=== PATIENT | male | born 1995 | race African-American/Black ===

== ENCOUNTER 2017-09-15 22:44 | Emergency (ER) | payer OTHER ==
[2017-09-16] MEDS ORDERED: ASPIRIN 81 MG CHEW TABLET PO ONE (00:15)
[2017-09-16 00:48] LABS: BASO % 0.4 % (0.0-1.0); EOS # 0.1 10^3/uL (0.0-0.50); EOS % 1.8 % (0.0-3.0); IMMATURE GRANULOCYTE % 0.7 % (0-0); LYMPH % 40.2 % (24.0-44.0); MEAN CORPUSCULAR HEMOGLOBIN 29.9 pg (27.0-33.0); MEAN CORPUSCULAR HGB CONC 34.8 g/dl (32.0-36.5); MONO # 0.6 10^3/uL (0.0-0.8); MONO % 8.1 % (0.0-5.0); NEUTROPHILS # 3.6 10^3/uL (1.8-7.7); NEUTROPHILS % 48.8 % (36.0-66.0); PLATELET COUNT, AUTOMATED 245 10^3/uL (150-450); RED CELL DISTRIBUTION WIDTH 12.2 % (11.5-14.5); WHITE BLOOD COUNT 7.4 10^3/uL (4.0-10.0)
[2017-09-16 01:07] LABS: ANION GAP 8 MEQ/L (8-16); BLOOD UREA NITROGEN 14 MG/DL (7-18); CALCIUM LEVEL 9.4 MG/DL (8.5-10.1); CARBON DIOXIDE LEVEL 29 MEQ/L (21-32); CHLORIDE LEVEL 103 MEQ/L (98-107); CREATININE FOR GFR 0.92 MG/DL (0.70-1.30); GLUCOSE, FASTING 98 MG/DL (70-105); POTASSIUM SERUM 4.1 MEQ/L (3.5-5.1); SODIUM LEVEL 140 MEQ/L (136-145)
[2017-09-16] MEDS ORDERED: ISOVUE-370 76% 100ML VIAL (Q9967) As Ordered ONE (01:26)
--- NOTE | 2017-09-16 02:30 | REPUSA ---
CLINICAL HISTORY: Dyspnea, elevated . PE. TECHNIQUE: Multiple incremental axial, coronal and oblique images are obtained from the thoracic inle t to the upper abdomen. Intravenous contrast material was administered as per pulmonary embolism prot ocol. COMMENTS: There is excellent opacification of pulmonary arterial system without evidence for pulmonary embolism . Aorta is of normal caliber without evidence for dissection or aneurysm. There is no evidence of pleural or parenchymal mass. There are no pleural effusions. There is no evid ence of hilar or mediastinal lymphadenopathy. The heart and great vessels are within normal limits. Images of the upper abdomen demonstrate no evidence of adrenal mass. The bony structures are free of lytic or blastic lesions. IMPRESSION: No evidence for pulmonary embolism. Thank you for your kind referral of this patient.
[2017-09-16 02:57] VITALS: BP 121/67
--- NOTE | 2017-09-16 08:16 | ECGEPIP ---
Stationary ECG Study [facility] - ED Test Date: 2017-09-15 Pat Name: KYARA COX Department: Room: - Gender: M [employer]: rn : 1995 Requested By: MAKAYLA Hines Order Number: [id number] Reading MD: Patricia Flood Measurements Intervals Strum Rate: 70 P: 17 CT: 133 QRS: 39 QRSD: 89 T: 29 QT: 352 QTc: 380 Interpretive Statements SINUS RHYTHM ST ELEVATION PROBABLE EARLY REPOLARIZATION - CLINICAL CORRELATION NO PRIOR FOR COMPARISON Electronically Signed On 09-16-2017 8:16:16 EST by Patricia Flood
--- NOTE | 2017-09-16 09:20 | REP ---
Clinical: Acute chest pain . Comparison: None . Technique: PA and lateral. Findings: The mediastinum and cardiac silhouette are normal. The lung mccrary are clear and without acute consolidation, effusion, or pneumothorax. The skeletal structures are intact and normal. Impression: 1. No acute cardiopulmonary process. Signed by Hans Eagle MD 09/16/2017 09:12 A
== END 2017-09-16 03:01 | disposition home or self-care (01) ==
LOC: M ED 22:44
DX: R07.89 Other chest pain (principal); Z77.098 Contact with and (suspected) exposure to other hazardous, chiefly nonmedicinal, chemicals; Z82.49 Family history of ischemic heart disease and other diseases of the circulatory system
CPT/HCPCS: 71020; 71275; 80048; 82550; 82553; 85025; 85379; 86140; 93005; 99284; Q9967

== ENCOUNTER 2017-12-23 21:31 | Emergency (ER) | payer OTHER | END 2017-12-24 00:47 | disposition home or self-care (01) | LOC: M ED 21:31 | DX: J32.1 Chronic frontal sinusitis (principal); Z82.5 Family history of asthma and other chronic lower respiratory diseases | CPT/HCPCS: 71046 ==

== ENCOUNTER 2018-02-10 14:04 | Inpatient (IN) | payer OTHER ==
[2018-02-10 16:55] LABS: HEMATOCRIT 43.7 % (42.0-52.0); MEAN CORPUSCULAR HEMOGLOBIN 29.9 pg (27.0-33.0); MEAN CORPUSCULAR HGB CONC 34.3 g/dl (32.0-36.5); MEAN CORPUSCULAR VOLUME 87.2 fl (80.0-96.0); PLATELET COUNT, AUTOMATED 199 10^3/uL (150-450); RED BLOOD COUNT 5.01 10^6/uL (4.30-6.10); RED CELL DISTRIBUTION WIDTH 12.7 % (11.5-14.5); WHITE BLOOD COUNT 6.6 10^3/uL (4.0-10.0)
[2018-02-10 17:13] LABS: AMPHETAMINES LEVEL URINE NEGATIVE (NEGATIVE); BARBITURATES URINE NEGATIVE (NEGATIVE); BENZODIAZEPINES URINE NEGATIVE (NEGATIVE); CANNABINOIDS URINE NEGATIVE (NEGATIVE); COCAINE METABOLITE URINE NEGATIVE (NEGATIVE); METHADONE URINE NEGATIVE (NEGATIVE); OPIATES URINE NEGATIVE (NEGATIVE); PHENCYCLIDINE URINE NEGATIVE (NEGATIVE)
[2018-02-10 17:24] LABS: ACETAMINOPHEN LEVEL < 2.0 UG/ML (10.0-30.0); ALBUMIN 4.1 GM/DL (3.2-5.2); ALBUMIN/GLOBULIN RATIO 1.24 (1.00-1.93); ALKALINE PHOSPHATASE 87 U/L (45-117); ALT/SGPT 37 U/L (12-78); ANION GAP 6 MEQ/L (8-16); AST/SGOT 32 U/L (7-37); BILIRUBIN,DIRECT 0.1 MG/DL (0.0-0.2); BILIRUBIN,TOTAL 0.4 MG/DL (0.2-1.0); BLOOD UREA NITROGEN 13 MG/DL (7-18); CALCIUM LEVEL 8.7 MG/DL (8.5-10.1); CARBON DIOXIDE LEVEL 26 MEQ/L (21-32); CHLORIDE LEVEL 108 MEQ/L (98-107); CREATININE FOR GFR 0.81 MG/DL (0.70-1.30); GLUCOSE, FASTING 85 MG/DL (70-100); POTASSIUM SERUM 4.2 MEQ/L (3.5-5.1); SALICYLATE LEVEL < 1.7 MG/DL (5.0-30.0); SODIUM LEVEL 140 MEQ/L (136-145); TOTAL PROTEIN 7.4 GM/DL (6.4-8.2)
[2018-02-10] MEDS ORDERED: MAALOX 30 ML SUSP *UDC PO (17:30)
[2018-02-10] MEDS ORDERED: MOM 30ML SUSPENSION UDC PO (17:30)
[2018-02-10 17:31] LABS: ETHYL ALCOHOL (ETHANOL) < 0.003 % (0.000-0.010)
[2018-02-11] MEDS ORDERED: ALBUTEROL 90 MCG/ACT 8GM HFA INHALER INH
[2018-02-11] MEDS: SERTRALINE HCL 25 MG TABLET PO (12:40)
[2018-02-11] MEDS: NICOTINE 7 MG/24 HR TRANSDERMAL TD (12:41)
[2018-02-11] MEDS: ACETAMINOPHEN TAB 650MG DOSE (2X325MG) PO (17:48)
[2018-02-11] MEDS: PRAZOSIN 1 MG CAP PO (22:16)
[2018-02-11] MEDS: traZODone 50 MG TAB PO (22:16)
[2018-02-12] MEDS: SERTRALINE HCL 25 MG TABLET PO (08:56)
[2018-02-12] MEDS: NICOTINE 7 MG/24 HR TRANSDERMAL TD (08:56)
[2018-02-12] MEDS: NICOTINE 21MG/24HR 1 EA TRANSDERMAL TD (09:52)
[2018-02-12] MEDS: traZODone 50 MG TAB PO (21:37)
[2018-02-12] MEDS: PRAZOSIN 1 MG CAP PO (21:38)
[2018-02-13] MEDS: NICOTINE 21MG/24HR 1 EA TRANSDERMAL TD (08:14)
[2018-02-13] MEDS: SERTRALINE HCL 25 MG TABLET PO (08:14)
[2018-02-13] MEDS: PRAZOSIN 1 MG CAP PO (21:32)
[2018-02-13] MEDS: traZODone 100 MG TAB PO (21:32)
[2018-02-14] MEDS: SERTRALINE HCL 25 MG TABLET PO (08:56)
[2018-02-14] MEDS: NICOTINE 21MG/24HR 1 EA TRANSDERMAL TD (08:56)
[2018-02-14] MEDS: ACETAMINOPHEN TAB 650MG DOSE (2X325MG) PO (20:46)
[2018-02-14] MEDS: PRAZOSIN 1 MG CAP PO (23:04)
[2018-02-14] MEDS: traZODone 100 MG TAB PO (23:04)
[2018-02-15] MEDS: SERTRALINE HCL 25 MG TABLET PO (08:09)
[2018-02-15] MEDS: NICOTINE 21MG/24HR 1 EA TRANSDERMAL TD (08:09)
[2018-02-15] MEDS: traZODone 100 MG TAB PO (23:02)
[2018-02-15] MEDS: PRAZOSIN 1 MG CAP PO (23:02)
[2018-02-16] MEDS: SERTRALINE HCL 25 MG TABLET PO (08:26)
[2018-02-16] MEDS: NICOTINE 21MG/24HR 1 EA TRANSDERMAL TD (08:26)
== END 2018-02-16 10:30 | disposition home or self-care (01) | DRG 885 ==
LOC: M ED 14:04 → M ED INP 17:20 → M PSY 22:51
DX: F33.0 Major depressive disorder, recurrent, mild (principal); R45.851 Suicidal ideations; F43.10 Post-traumatic stress disorder, unspecified; J45.909 Unspecified asthma, uncomplicated

== ENCOUNTER 2018-03-05 10:47 | Emergency (ER) | payer OTHER ==
[2018-03-05 12:51] LABS: BASO % 0.8 % (0.0-1.0); EOS # 0.1 10^3/uL (0.0-0.50); EOS % 1.6 % (0.0-3.0); HEMATOCRIT 45.6 % (42.0-52.0); HEMOGLOBIN 15.3 g/dl (13.5-17.5); IMMATURE GRANULOCYTE % 0.2 % (0-3.0); LYMPH # 1.8 10^3/uL (1.5-6.5); LYMPH % 35.6 % (24.0-44.0); MEAN CORPUSCULAR HEMOGLOBIN 29.8 pg (27.0-33.0); MEAN CORPUSCULAR HGB CONC 33.6 g/dl (32.0-36.5); MEAN CORPUSCULAR VOLUME 88.7 fl (80.0-96.0); MONO # 0.6 10^3/uL (0.0-0.8); MONO % 12.1 % (0.0-5.0); NEUTROPHILS # 2.5 10^3/uL (1.8-7.7); NEUTROPHILS % 49.7 % (36.0-66.0); PLATELET COUNT, AUTOMATED 159 10^3/uL (150-450); RED BLOOD COUNT 5.14 10^6/uL (4.30-6.10); RED CELL DISTRIBUTION WIDTH 12.3 % (11.5-14.5)
[2018-03-05] MEDS: MORPHINE 4 MG/ML 1ML VIAL/SYRINGE (J2270) IV (12:51)
[2018-03-05] MEDS ORDERED: ISOVUE-370 76% 100ML VIAL (Q9967) As Ordered (13:04)
[2018-03-05 13:22] LABS: LACTIC ACID SEPSIS PROTOCOL 1.1 MMOL/L (0.4-2.0)
[2018-03-05 13:23] LABS: ALBUMIN 3.8 GM/DL (3.2-5.2); ALBUMIN/GLOBULIN RATIO 1.09 (1.00-1.93); ALKALINE PHOSPHATASE 77 U/L (45-117); ALT/SGPT 23 U/L (12-78); ANION GAP 2 MEQ/L (8-16); AST/SGOT 15 U/L (7-37); BILIRUBIN,DIRECT 0.1 MG/DL (0.0-0.2); BILIRUBIN,TOTAL 0.5 MG/DL (0.2-1.0); BLOOD UREA NITROGEN 9 MG/DL (7-18); CARBON DIOXIDE LEVEL 30 MEQ/L (21-32); CHLORIDE LEVEL 108 MEQ/L (98-107); CREATININE FOR GFR 0.88 MG/DL (0.70-1.30); GLUCOSE, FASTING 79 MG/DL (70-100); SODIUM LEVEL 140 MEQ/L (136-145); TOTAL PROTEIN 7.3 GM/DL (6.4-8.2)
== END 2018-03-05 14:32 | disposition home or self-care (01) ==
LOC: M ED 10:47
DX: R60.0 Localized edema (principal); R16.1 Splenomegaly, not elsewhere classified; J45.909 Unspecified asthma, uncomplicated; I10 Essential (primary) hypertension; F90.9 Attention-deficit hyperactivity disorder, unspecified type; F43.10 Post-traumatic stress disorder, unspecified; F41.9 Anxiety disorder, unspecified; F33.9 Major depressive disorder, recurrent, unspecified; K21.9 Gastro-esophageal reflux disease without esophagitis; Z79.899 Other long term (current) drug therapy; F17.210 Nicotine dependence, cigarettes, uncomplicated
CPT/HCPCS: J2270

== ENCOUNTER 2018-03-09 19:04 | Emergency (ER) | payer OTHER ==
[2018-03-09] MEDS: PERCOCET 5MG/325MG TAB PO (20:39)
[2018-03-09 21:21] LABS: BASO % 0.7 % (0.0-1.0); EOS # 0.1 10^3/uL (0.0-0.50); HEMATOCRIT 46.6 % (42.0-52.0); HEMOGLOBIN 15.7 g/dl (13.5-17.5); IMMATURE GRANULOCYTE % 0.4 % (0-3.0); LYMPH # 1.8 10^3/uL (1.5-6.5); LYMPH % 33.6 % (24.0-44.0); MEAN CORPUSCULAR HEMOGLOBIN 29.6 pg (27.0-33.0); MEAN CORPUSCULAR HGB CONC 33.7 g/dl (32.0-36.5); MEAN CORPUSCULAR VOLUME 87.9 fl (80.0-96.0); MONO # 0.5 10^3/uL (0.0-0.8); MONO % 9.7 % (0.0-5.0); NEUTROPHILS # 2.9 10^3/uL (1.8-7.7); NEUTROPHILS % 53.6 % (36.0-66.0); PLATELET COUNT, AUTOMATED 177 10^3/uL (150-450); RED CELL DISTRIBUTION WIDTH 12.3 % (11.5-14.5); WHITE BLOOD COUNT 5.5 10^3/uL (4.0-10.0)
[2018-03-09 21:46] LABS: ANION GAP 6 MEQ/L (8-16); BLOOD UREA NITROGEN 11 MG/DL (7-18); CALCIUM LEVEL 8.9 MG/DL (8.5-10.1); CARBON DIOXIDE LEVEL 28 MEQ/L (21-32); CHLORIDE LEVEL 107 MEQ/L (98-107); CREATININE FOR GFR 0.87 MG/DL (0.70-1.30); GLUCOSE, FASTING 80 MG/DL (70-100); POTASSIUM SERUM 3.8 MEQ/L (3.5-5.1); SODIUM LEVEL 141 MEQ/L (136-145)
[2018-03-09] MEDS ORDERED: ISOVUE-370 76% 100ML VIAL (Q9967) As Ordered (21:56)
== END 2018-03-09 23:06 | disposition home or self-care (01) ==
LOC: M ED 19:04
DX: S20.219A Contusion of unspecified front wall of thorax, initial encounter (principal); M54.5 Low back pain; R00.1 Bradycardia, unspecified; V43.12XA Car passenger injured in collision with other type car in nontraffic accident, initial encounter; Y92.89 Other specified places as the place of occurrence of the external cause; Y93.9 Activity, unspecified; Y99.9 Unspecified external cause status; Z79.899 Other long term (current) drug therapy
CPT/HCPCS: Q9967

== ENCOUNTER 2018-03-16 07:13 | Emergency (ER) | payer OTHER ==
[2018-03-16] MEDS: KETOROLAC 60 MG/2 ML VIAL (J1885) IM (08:24)
[2018-03-16 08:50] LABS: KETONE, URINE AUTO RFX NEGATIVE (NEGATIVE); LEUKOCYTE ESTERASE UR AUTO RFX NEGATIVE (NEGATIVE); MUCUS, URINE RFX SMALL (NEGATIVE); NITRITE, URINE AUTO RFX NEGATIVE (NEGATIVE); RBC, URINE AUTO RFX 2 /HPF (0-3); SPECIFIC GRAVITY UR AUTO RFX 1.024 (1.002-1.035); SQUAM EPITHELIAL CELL UR AURFX 0 /HPF (0-6); WBC, URINE AUTO RFX 1 /HPF (0-3)
[2018-03-16 10:36] LABS: CHLAMYDIA DNA AMPLIFICATION NEGATIVE (NEGATIVE); GC DNA AMPLIFICATION NEGATIVE (NEGATIVE)
== END 2018-03-16 10:26 | disposition home or self-care (01) ==
LOC: M ED 07:13
DX: R59.0 Localized enlarged lymph nodes (principal); I10 Essential (primary) hypertension; F43.10 Post-traumatic stress disorder, unspecified; K21.9 Gastro-esophageal reflux disease without esophagitis; F41.9 Anxiety disorder, unspecified; F32.9 Major depressive disorder, single episode, unspecified; Z72.0 Tobacco use; Z79.899 Other long term (current) drug therapy
CPT/HCPCS: J1885

== ENCOUNTER 2018-04-14 03:55 | Emergency (ER) | payer OTHER ==
[2018-04-14 07:41] LABS: HEMATOCRIT 42.2 % (42.0-52.0); HEMOGLOBIN 14.6 g/dl (13.5-17.5); MEAN CORPUSCULAR HEMOGLOBIN 29.6 pg (27.0-33.0); MEAN CORPUSCULAR HGB CONC 34.6 g/dl (32.0-36.5); MEAN CORPUSCULAR VOLUME 85.6 fl (80.0-96.0); PLATELET COUNT, AUTOMATED 171 10^3/uL (150-450); RED BLOOD COUNT 4.93 10^6/uL (4.30-6.10); RED CELL DISTRIBUTION WIDTH 12.2 % (11.5-14.5); WHITE BLOOD COUNT 6.4 10^3/uL (4.0-10.0)
== END 2018-04-14 08:02 | disposition home or self-care (01) ==
LOC: M ED 03:55
DX: S31.20XA Unspecified open wound of penis, initial encounter (principal); R59.9 Enlarged lymph nodes, unspecified; I10 Essential (primary) hypertension; J45.909 Unspecified asthma, uncomplicated; K21.9 Gastro-esophageal reflux disease without esophagitis; F41.9 Anxiety disorder, unspecified; Z72.0 Tobacco use; Z79.899 Other long term (current) drug therapy
CPT/HCPCS: 85027

== ENCOUNTER 2018-07-02 15:46 | Inpatient (IN) | payer OTHER ==
[2018-07-02 16:58] LABS: HEMATOCRIT 44.9 % (42.0-52.0); HEMOGLOBIN 15.4 g/dl (13.5-17.5); MEAN CORPUSCULAR HGB CONC 34.3 g/dl (32.0-36.5); MEAN CORPUSCULAR VOLUME 87.5 fl (80.0-96.0); PLATELET COUNT, AUTOMATED 191 10^3/uL (150-450); RED BLOOD COUNT 5.13 10^6/uL (4.30-6.10); RED CELL DISTRIBUTION WIDTH 12.8 % (11.5-14.5); WHITE BLOOD COUNT 5.8 10^3/uL (4.0-10.0)
[2018-07-02 17:27] LABS: AMPHETAMINES LEVEL URINE NEGATIVE (NEGATIVE); BARBITURATES URINE NEGATIVE (NEGATIVE); BENZODIAZEPINES URINE NEGATIVE (NEGATIVE); CANNABINOIDS URINE NEGATIVE (NEGATIVE); COCAINE METABOLITE URINE NEGATIVE (NEGATIVE); METHADONE URINE NEGATIVE (NEGATIVE); OPIATES URINE NEGATIVE (NEGATIVE); PHENCYCLIDINE URINE NEGATIVE (NEGATIVE)
[2018-07-02 17:37] LABS: ALBUMIN/GLOBULIN RATIO 1.14 (1.00-1.93); ALKALINE PHOSPHATASE 85 U/L (45-117); ALT/SGPT 35 U/L (12-78); ANION GAP 7 MEQ/L (8-16); AST/SGOT 27 U/L (7-37); BILIRUBIN,DIRECT < 0.1 MG/DL (0.0-0.2); BILIRUBIN,TOTAL 0.4 MG/DL (0.2-1.0); BLOOD UREA NITROGEN 11 MG/DL (7-18); CALCIUM LEVEL 8.9 MG/DL (8.5-10.1); CARBON DIOXIDE LEVEL 26 MEQ/L (21-32); CHLORIDE LEVEL 108 MEQ/L (98-107); CREATININE FOR GFR 0.84 MG/DL (0.70-1.30); GLUCOSE, FASTING 85 MG/DL (70-100); SALICYLATE LEVEL < 1.7 MG/DL (5.0-30.0); SODIUM LEVEL 141 MEQ/L (136-145); TOTAL PROTEIN 7.5 GM/DL (6.4-8.2)
[2018-07-02 17:38] LABS: ACETAMINOPHEN LEVEL < 2.0 UG/ML (10.0-30.0)
[2018-07-02] MEDS ORDERED: MOM 30ML SUSPENSION UDC PO (20:30)
[2018-07-02] MEDS ORDERED: traZODone 50 MG TAB PO (20:30)
[2018-07-02] MEDS ORDERED: MAALOX 30 ML SUSP *UDC PO (20:30)
[2018-07-02] MEDS ORDERED: OLANZapine ORAL DISINTEGRATING TAB 5MG PO (20:30)
[2018-07-03] MEDS: NICOTINE POLACRILEX 2 MG GUM PO ×2 (11:08→17:43)
[2018-07-03] MEDS: SERTRALINE HCL 50 MG TAB PO (12:05)
[2018-07-03] MEDS: PRAZOSIN 1 MG CAP PO (20:58)
[2018-07-04] MEDS: SERTRALINE HCL 50 MG TAB PO (08:19)
[2018-07-04] MEDS: NICOTINE POLACRILEX 2 MG GUM PO ×2 (08:19→18:38)
[2018-07-04] MEDS: PRAZOSIN 1 MG CAP PO (21:16)
[2018-07-05] MEDS: SERTRALINE HCL 50 MG TAB PO (08:35)
[2018-07-05] MEDS: ACETAMINOPHEN TAB 650MG DOSE (2X325MG) PO (13:38)
[2018-07-05] MEDS: PRAZOSIN 1 MG CAP PO (21:18)
[2018-07-06] MEDS: SERTRALINE HCL 50 MG TAB PO (08:35)
[2018-07-06 14:19] LABS: ETHYL ALCOHOL (ETHANOL) < 0.003 % (0.000-0.010)
[2018-07-06] MEDS: PRAZOSIN 1 MG CAP PO (20:41)
[2018-07-06] MEDS: MIRTAZAPINE 15 MG TAB PO (22:34)
[2018-07-07] MEDS: SERTRALINE HCL 50 MG TAB PO (08:04)
[2018-07-07] MEDS: PRAZOSIN 1 MG CAP PO (21:49)
[2018-07-08] MEDS: SERTRALINE HCL 50 MG TAB PO (09:33)
== END 2018-07-08 11:25 | disposition home or self-care (01) | DRG 883 ==
LOC: M PSY 07-03 18:26 → M ED 15:46 → M ED INP 20:30 → M PSY 23:42
DX: F60.2 Antisocial personality disorder (principal); F43.10 Post-traumatic stress disorder, unspecified; F32.9 Major depressive disorder, single episode, unspecified; J45.909 Unspecified asthma, uncomplicated; F17.210 Nicotine dependence, cigarettes, uncomplicated; Z79.899 Other long term (current) drug therapy